=== PATIENT | female | born 1940 | race Caucasian/White ===

== ENCOUNTER 2023-12-27 07:20 | Outpatient (CLI) | payer OTHER, SELFPAY ==
--- NOTE | ~2023-12-27 | NM_ITS ---
EXAMINATION: NM hussain stress w perfusion DATE: 12/27/2023 09:53 INDICATION: Preop. Dyslipidemia and hypertension. TECHNIQUE: Rest images were obtained following intravenous administration of 10.4 mCi Tc99m tetrofosm in (Myoview). The patient was infused intravenously with Lexiscan (regadenoson). Then, 33 mCi Tc99m t etrofosmin (Myoview) was administered intravenously, and stress images were obtained. Data was recons tructed into short axis and horizontal and vertical long axis SPECT images. Gated SPECT images were a lso obtained. COMPARISON: None. FINDINGS: There is no definite reversible or fixed perfusion abnormality to suggest ischemia or infar ction. There is no segmental wall motion abnormality. Left ventricular ejection fraction measures > 70%. IMPRESSION: 1. No definite ischemia or infarct. 2. Normal left ventricular ejection fraction measuring >70%. Reviewed, dictated and finalized at location A.
--- NOTE | 2023-12-27 07:36 | EST_ITS ---
Patient Info Name: Taylor Burger Age: 83 years : 1940 Gender: Female Ht: 68 in Wt: 160 lbs BSA: 1.87 m2 HR: 65 bpm BP: 182 / 85 mmHg Heart Rhythm: Sinus Rhythm Exam Date: 12/27/2023 8:49 AM Exam Location: [facility] Patient Status: Outpatient Admit Date: 12/27/2023 Staff Ordering Physician: Jourdan Pitts DO Attending Provider: Jourdan Pitts DO Exercise Technologist: Katherine Carpenter CT Exercise Physician: Jourdna Pitts DO Exam Type: CA stress hussain w NM Study Info Indications Z01.810 - Encounter for preprocedural cardiovascular examination A regadenoson stress test was performed. Summary 1. 1. Negative lexiscan stress test for ischemic ST changes by ECG criteria. 2. 2. Baseline hypertension. 3. 3. Nuclear scan to follow and will be reported separately. Please correlate with it. 4. 4. Patient informed of the above results. Protocol: Lexiscan Stress ECG Details Stage: REST Duration (min): 4 min : 19 sec HR (bpm): 65 SBP (mmHg): 182 DBP (mmHg): 95 Stage: REST Duration (min): 14 min : 25 sec HR (bpm): 65 SBP (mmHg): 182 DBP (mmHg): 97 Stage: STAGE 1 Duration (min): 1 min : 0 sec HR (bpm): 75 SBP (mmHg): 180 DBP (mmHg): 73 Stage: RECOVERY Duration (min): 1 min : 0 sec HR (bpm): 89 SBP (mmHg): 180 DBP (mmHg): 73 Stage: RECOVERY Duration (min): 2 min : 0 sec HR (bpm): 89 SBP (mmHg): 180 DBP (mmHg): 73 Stage: RECOVERY Duration (min): 3 min : 0 sec HR (bpm): 87 SBP (mmHg): 163 DBP (mmHg): 76 Stage: RECOVERY Duration (min): 3 min : 7 sec HR (bpm): 87 SBP (mmHg): 163 DBP (mmHg): 76 Rest HR: 65 bpm Peak HR: 91 bpm Rest Sys BP: 182 mmHg Peak Sys BP: 180 mmHg Max Pred HR: 138 bpm % Max Pred HR: 66 % Target HR: 117 bpm Max RPP: 16,380 bpm*mmHg Termination Reason: Completed protocol Cardiac Symptoms: Shortness of breath Total Time: 1 min : 0 sec Rest Burton BP: 97 mmHg Peak Burton BP: 73 mmHg Total Dose: 0.4 mg Resting ECG Sinus rhythm. Stress ECG No ST changes. Arrhythmias None. Report Signatures
== END 2023-12-27 07:21 | disposition home or self-care (01) ==
LOC: ANHCARD 07:22
PROVIDERS: PCP Student in an Organized Health Care Education/Training Program; Visit Provider Internal Medicine Cardiovascular Disease
DX: Z01.810 Encounter for preprocedural cardiovascular examination (principal); I10 Essential (primary) hypertension
CPT/HCPCS: 78452; 93017; A9502; J2785